=== PATIENT | female | born 1965 | race African-American/Black ===

== ENCOUNTER 2017-03-26 10:13 | Emergency (ER) | payer SELFPAY ==
[2017-03-26] MEDS ORDERED: Acetaminophen 500 MG TAB ONE (10:59)
[2017-03-26 11:01] LABS: #Basophils 0.2 thou/uL (0.0-0.2); #Eosinphils 0.1 thou/uL (0.0-0.7); #Lymphocytes 2.5 thou/uL (1.20-3.40); #Monocytes 0.9 thou/uL (0.11-0.59); #Neutrophils 7.1 thou/uL (1.40-6.50); %Basophils 1.4 % (0.0-1.0); %Lymphocytes 23.4 % (21.0-51.0); %Monocytes 8.1 % (0.0-10.0); %Neutrophils 66.2 % (42.0-75.0); Hemoglobin 14.4 g/dL (12.0-16.0); Mean Corpuscular HGB CONC 32.3 g/dL (32.0-36.0); Mean Corpuscular Hemoglobin 29.2 pg (27.0-31.0); Mean Corpuscular Volume 90.4 fl (81.0-99.0); Mean Platelet Volume 8.8 fL (7.4-10.4); Platelet Count 241 thou/uL (130-400); RBC Distribution Width 12.1 % (11.5-14.5); Red Blood Cell (RBC) Count 4.95 mill/uL (4.20-5.40); White Blood Cell (WBC) Count 10.7 thou/uL (4.8-10.8)
[2017-03-26 11:14] LABS: ALT (SGPT) 13 U/L (8-55); AST (SGOT) 9 U/L (5-34); Albumin 3.6 g/dL (3.5-5.0); Alkaline Phosphatase 83 U/L (40-150); Anion Gap 11 mmol/L (10-20); BUN (Urea Nitrogen) 11 mg/dL (9.8-20.1); Bilirubin, Total 0.4 mg/dL (0.2-1.2); Calc. Creatinine Clearance 0 mL/min (70-130); Carbon Dioxide 24 mmol/L (22-29); Chloride 107 mmol/L (98-107); Estimated GFR-MDRD Greater than 90; Globulin 3.5 g/dL (2.4-3.5); Glucose 203 mg/dL (70-105); Potassium 4.1 mmol/L (3.5-5.1); Protein, Total 7.1 g/dL (6.0-8.3); Sodium 138 mmol/L (136-145)
--- NOTE | 2017-03-26 11:45 | RAD ---
LEFT HIP TWO VIEWS: Date: 03-26-17 FINDINGS: No fracture was appreciated. The joint space is normal in width. The adjacent pubic ring appears int act. A little periosteal prominence in the upper femur is typical and not necessarily abnormal. IMPRESSION: No acute bony findings. POS: HOME
--- NOTE | 2017-03-26 11:46 | RAD ---
LUMBAR SPINE THREE VIEWS: Date: 03-26-17 FINDINGS: No acute fracture was seen. Very minor wedging of T11 does not appear acute. There is mild anterolis thesis of L4 on L5 that appears to be due to facet arthritis. No parts defects were appreciated. The disc spaces are normal in height. The SI joints are symmetrical. Overall, degenerative changes are present but very minor. IMPRESSION: No acute finding. POS: HOME
[2017-03-26] MEDS ORDERED: Ketorolac Tromethamine 30 MG/ML VIAL ONE (12:00)
[2017-03-26] MEDS ORDERED: HYDROcodone/Acetaminophen 10/325 mg Tablet ONE (12:33)
== END 2017-03-26 12:20 | disposition home or self-care (01) ==
LOC: BURERS 10:13
DX: M54.5 Low back pain (principal); E11.9 Type 2 diabetes mellitus without complications; E78.5 Hyperlipidemia, unspecified; I10 Essential (primary) hypertension; F17.210 Nicotine dependence, cigarettes, uncomplicated; W01.0XXA Fall on same level from slipping, tripping and stumbling without subsequent striking against object, initial encounter
CPT/HCPCS: 36415; 72100; 80053; 85025; 96361; 96374; J1885

== ENCOUNTER 2017-05-22 11:55 | Emergency (ER) | payer SELFPAY ==
[2017-05-22] MEDS ORDERED: Albuterol Sulfate 1.25 MG/3 ML NEB ONE (12:30)
[2017-05-22] MEDS ORDERED: Sodium Chloride 0.9% 100 ML ONE (12:30)
[2017-05-22] MEDS ORDERED: cefTRIAXone\\ROCEPHIN 2 GM VIAL ONE (12:30)
[2017-05-22 12:48] LABS: #Basophils 0.1 thou/uL (0.0-0.2); #Lymphocytes 1.7 thou/uL (1.20-3.40); #Monocytes 0.7 thou/uL (0.11-0.59); #Neutrophils 3.3 thou/uL (1.40-6.50); %Basophils 2.6 % (0.0-1.0); %Lymphocytes 29.5 % (21.0-51.0); %Monocytes 11.6 % (0.0-10.0); %Neutrophils 56.3 % (42.0-75.0); Mean Corpuscular HGB CONC 32.4 g/dL (32.0-36.0); Mean Corpuscular Hemoglobin 28.7 pg (27.0-31.0); Mean Corpuscular Volume 88.6 fl (81.0-99.0); Mean Platelet Volume 7.9 fL (7.4-10.4); Platelet Count 248 thou/uL (130-400); RBC Distribution Width 11.9 % (11.5-14.5); Red Blood Cell (RBC) Count 5.23 mill/uL (4.20-5.40); White Blood Cell (WBC) Count 5.8 thou/uL (4.8-10.8)
[2017-05-22] MEDS ORDERED: Acetaminophen 500 MG TAB ONE (13:01)
[2017-05-22 13:05] LABS: ALT (SGPT) 31 U/L (8-55); AST (SGOT) 46 U/L (5-34); Albumin 3.7 g/dL (3.5-5.0); Alkaline Phosphatase 84 U/L (40-150); Anion Gap 16 mmol/L (10-20); BUN (Urea Nitrogen) 12 mg/dL (9.8-20.1); Bilirubin, Total 0.2 mg/dL (0.2-1.2); Calc. Creatinine Clearance 0 mL/min (70-130); Carbon Dioxide 23 mmol/L (22-29); Chloride 100 mmol/L (98-107); Estimated GFR-MDRD 74; Globulin 4.7 g/dL (2.4-3.5); Glucose 224 mg/dL (70-105); Potassium 3.7 mmol/L (3.5-5.1); Protein, Total 8.4 g/dL (6.0-8.3); Sodium 135 mmol/L (136-145)
[2017-05-22 13:06] LABS: CKMB 0.7 ng/mL (0-6.6); Troponin I Less than 0.010 ng/mL (< 0.028)
[2017-05-22] MEDS ORDERED: Oseltamivir 75 MG CAP ONE (13:25)
[2017-05-22] MEDS ORDERED: Benzonatate 100 MG CAP ONE (13:48)
--- NOTE | 2017-05-22 14:40 | RAD ---
2 VIEWS OF CHEST: Date: 05/22/17 COMPARISON: 07/05/13. HISTORY: Cough. FINDINGS: Lungs are clear. Heart and mediastinal contours are stable. No acute osseous abnormality. Stable thor acic spine degenerative change. IMPRESSION: No acute findings. POS: [facility]
== END 2017-05-22 14:04 | disposition short-term general hospital (02) ==
LOC: BURERS 11:55
DX: J44.0 Chronic obstructive pulmonary disease with (acute) lower respiratory infection (principal); J11.1 Influenza due to unidentified influenza virus with other respiratory manifestations; R09.02 Hypoxemia; E11.9 Type 2 diabetes mellitus without complications; E78.5 Hyperlipidemia, unspecified; I10 Essential (primary) hypertension; F17.210 Nicotine dependence, cigarettes, uncomplicated; Z79.84 Long term (current) use of oral hypoglycemic drugs; Z79.899 Other long term (current) drug therapy
CPT/HCPCS: 36415; 71020; 80053; 82553; 83605; 83880; 84484; 85025; 87040; 94640; 94760; 96361; 96365; J0696; J7050; J7620

== ENCOUNTER 2018-08-19 03:33 | Emergency (ER) | payer SELFPAY ==
[2018-08-19] MEDS ORDERED: Aspirin Chewable 81 MG TAB ONE (03:59)
[2018-08-19 04:21] LABS: #Basophils 0.2 thou/uL (0.0-0.2); #Eosinphils 0.1 thou/uL (0.0-0.7); #Lymphocytes 3.5 thou/uL (1.20-3.40); #Monocytes 0.7 thou/uL (0.11-0.59); #Neutrophils 4.1 thou/uL (1.40-6.50); %Basophils 2.3 % (0.0-1.0); %Eosinophils 1.7 % (0.0-10.0); %Lymphocytes 40.6 % (21.0-51.0); %Monocytes 8.1 % (0.0-10.0); %Neutrophils 47.4 % (42.0-75.0); Hemoglobin 14.3 g/dL (12.0-16.0); Mean Corpuscular Hemoglobin 29.2 pg (27.0-31.0); Mean Corpuscular Volume 88.6 fL (78.0-98.0); Mean Platelet Volume 8.6 fL (7.4-10.4); Platelet Count 268 thou/uL (130-400); RBC Distribution Width 12.8 % (11.5-14.5); Red Blood Cell (RBC) Count 4.88 mill/uL (4.20-5.40); White Blood Cell (WBC) Count 8.6 thou/uL (4.8-10.8)
[2018-08-19 04:31] LABS: ALT (SGPT) 13 U/L (8-55); AST (SGOT) 9 U/L (5-34); Albumin 3.8 g/dL (3.5-5.0); Alkaline Phosphatase 90 U/L (40-150); Anion Gap 13 mmol/L (10-20); BUN (Urea Nitrogen) 16 mg/dL (9.8-20.1); Bilirubin, Total 0.2 mg/dL (0.2-1.2); Calc. Creatinine Clearance 0 mL/min (70-130); Calcium 9.4 mg/dL (7.8-10.44); Carbon Dioxide 25 mmol/L (22-29); Chloride 105 mmol/L (98-107); Estimated GFR-MDRD 81; Globulin 3.6 g/dL (2.4-3.5); Glucose 156 mg/dL (70-105); Protein, Total 7.4 g/dL (6.0-8.3); Sodium 139 mmol/L (136-145)
[2018-08-19] MEDS ORDERED: Ketorolac Tromethamine 30 MG/ML VIAL ONE (04:41)
--- NOTE | 2018-08-19 07:52 | RAD ---
PORTABLE CHEST: DATE: 08/19/2018. FINDINGS: An AP portable film at 1533 is compared with an 05/22/2017 study. The heart is normal in size. There is no vascular congestion or edema. The lungs are clear. The sl ight haziness in the left base appears to be due to the overlying soft tissues. The mediastinum appe ars normal and the trachea is midline. IMPRESSION: No acute thoracic findings. POS: HOME
== END 2018-08-19 06:45 | disposition home or self-care (01) ==
LOC: BURERS 03:33
DX: R07.89 Other chest pain (principal); E11.9 Type 2 diabetes mellitus without complications; E78.5 Hyperlipidemia, unspecified; I10 Essential (primary) hypertension; Z87.891 Personal history of nicotine dependence; Z79.4 Long term (current) use of insulin; Z79.899 Other long term (current) drug therapy
CPT/HCPCS: 36416; 71045; 80053; 84484; 85025; 93005; 96374; 36415-59; J1885

== ENCOUNTER 2019-01-19 19:20 | Emergency (ER) | payer SELFPAY ==
[2019-01-19] MEDS ORDERED: Aspirin Chewable 81 MG TAB ONE (19:45)
[2019-01-19 19:48] LABS: #Basophils 0.2 thou/uL (0.0-0.2); #Eosinphils 0.1 thou/uL (0.0-0.7); #Lymphocytes 3.5 thou/uL (1.20-3.40); #Monocytes 0.7 thou/uL (0.11-0.59); #Neutrophils 4.1 thou/uL (1.40-6.50); %Basophils 2.8 % (0.0-1.0); %Eosinophils 1.4 % (0.0-10.0); %Lymphocytes 39.7 % (21.0-51.0); %Monocytes 8.5 % (0.0-10.0); %Neutrophils 47.6 % (42.0-75.0); Hemoglobin 14.1 g/dL (12.0-16.0); Mean Corpuscular HGB CONC 30.9 g/dL (32.0-36.0); Mean Corpuscular Hemoglobin 28.1 pg (27.0-31.0); Mean Platelet Volume 8.3 fL (7.4-10.4); Platelet Count 264 thou/uL (130-400); RBC Distribution Width 12.9 % (11.5-14.5); Red Blood Cell (RBC) Count 5.02 mill/uL (4.20-5.40); White Blood Cell (WBC) Count 8.7 thou/uL (4.8-10.8)
[2019-01-19 20:03] LABS: ALT (SGPT) 14 U/L (8-55); AST (SGOT) 10 U/L (5-34); Albumin 3.8 g/dL (3.5-5.0); Alkaline Phosphatase 87 U/L (40-150); Anion Gap 14 mmol/L (10-20); BUN (Urea Nitrogen) 11 mg/dL (9.8-20.1); Bilirubin, Total Less than 0.2 mg/dL (0.2-1.2); Calc. Creatinine Clearance 0 mL/min (70-130); Calcium 9.6 mg/dL (7.8-10.44); Carbon Dioxide 28 mmol/L (22-29); Chloride 101 mmol/L (98-107); Estimated GFR-MDRD 82; Globulin 4.1 g/dL (2.4-3.5); Glucose 139 mg/dL (70-105); Lipase 27 U/L (8-78); Potassium 4.1 mmol/L (3.5-5.1); Protein, Total 7.9 g/dL (6.0-8.3); Sodium 139 mmol/L (136-145)
[2019-01-19] MEDS ORDERED: Metoprolol Tartrate 5 MG/5 ML VIAL ONE ×2 (20:18→20:20)
[2019-01-19] MEDS ORDERED: Ondansetron PF 4 MG/2 ML Vial ONE (20:18)
[2019-01-19] MEDS ORDERED: Enoxaparin Sodium 30 MG/0.3 ML SYRINGE ONE (20:18)
[2019-01-19] MEDS ORDERED: Enoxaparin Sodium 100 MG/ML SYRINGE ONE (20:18)
[2019-01-19 20:20] LABS: CKMB 2.4 ng/mL (0-6.6)
--- NOTE | 2019-01-19 20:22 | RAD ---
PORTABLE CHEST: 01/19/19 HISTORY: Chest pain. Lungs appear clear. No infiltrate identified. The heart and mediastinum unremarkable. IMPRESSION: No acute infiltrate identified. POS: [facility]
== END 2019-01-19 20:35 | disposition short-term general hospital (02) ==
LOC: BURERS 19:20
DX: I21.4 Non-ST elevation (NSTEMI) myocardial infarction (principal); E11.9 Type 2 diabetes mellitus without complications; I10 Essential (primary) hypertension; E78.5 Hyperlipidemia, unspecified; F17.210 Nicotine dependence, cigarettes, uncomplicated; Z79.84 Long term (current) use of oral hypoglycemic drugs; Z79.51 Long term (current) use of inhaled steroids; Z79.899 Other long term (current) drug therapy
CPT/HCPCS: 71045; 80053; 82553; 83690; 84484; 85025; 93005; 96372; 96374; 96375; J1650; J2405

== ENCOUNTER 2019-04-14 22:01 | Emergency (ER) | payer SELFPAY ==
[2019-04-14] MEDS ORDERED: methylPREDNISolone Sod Succ/PF 125 MG/2 ML VIAL ONE (22:15)
[2019-04-14] MEDS ORDERED: diphenhydrAMINE 50 MG/ML VIAL ONE (22:15)
[2019-04-14] MEDS ORDERED: Famotidine In NaCl 20 mg/50 ml Premix Bag ONE (22:15)
[2019-04-14 22:22] LABS: #Basophils 0.2 thou/uL (0.0-0.2); #Eosinphils 0.3 thou/uL (0.0-0.7); #Monocytes 0.8 thou/uL (0.11-0.59); #Neutrophils 4.5 thou/uL (1.40-6.50); %Basophils 2.4 % (0.0-1.0); %Eosinophils 3.2 % (0.0-10.0); %Lymphocytes 34.1 % (21.0-51.0); %Monocytes 8.9 % (0.0-10.0); %Neutrophils 51.5 % (42.0-75.0); Hemoglobin 13.6 g/dL (12.0-16.0); Mean Corpuscular HGB CONC 32.7 g/dL (32.0-36.0); Mean Corpuscular Volume 88.5 fL (78.0-98.0); Mean Platelet Volume 8.9 fL (7.4-10.4); Platelet Count 250 thou/uL (130-400); RBC Distribution Width 13.3 % (11.5-14.5); Red Blood Cell (RBC) Count 4.71 mill/uL (4.20-5.40); White Blood Cell (WBC) Count 8.8 thou/uL (4.8-10.8)
[2019-04-14 22:37] LABS: ALT (SGPT) 14 U/L (8-55); AST (SGOT) 8 U/L (5-34); Albumin 4.1 g/dL (3.5-5.0); Alkaline Phosphatase 138 U/L (40-110); Anion Gap 16 mmol/L (10-20); BUN (Urea Nitrogen) 13 mg/dL (9.8-20.1); Bilirubin, Total 0.2 mg/dL (0.2-1.2); Calc. Creatinine Clearance 0 mL/min (70-130); Calcium 9.8 mg/dL (7.8-10.44); Carbon Dioxide 25 mmol/L (22-29); Chloride 102 mmol/L (98-107); Estimated GFR-MDRD 79; Globulin 4.1 g/dL (2.4-3.5); Glucose 305 mg/dL (70-105); Protein, Total 8.2 g/dL (6.0-8.3); Sodium 139 mmol/L (136-145)
== END 2019-04-15 02:00 | disposition home or self-care (01) ==
LOC: BURERS 22:01
DX: T78.3XXA Angioneurotic edema, initial encounter (principal); E11.9 Type 2 diabetes mellitus without complications; E78.5 Hyperlipidemia, unspecified; E78.00 Pure hypercholesterolemia, unspecified; I10 Essential (primary) hypertension; F17.210 Nicotine dependence, cigarettes, uncomplicated; Z79.899 Other long term (current) drug therapy; Z79.84 Long term (current) use of oral hypoglycemic drugs; Z79.51 Long term (current) use of inhaled steroids
CPT/HCPCS: 80053; 83605; 85025; 96374; 96375; J1200; J2930

== ENCOUNTER 2019-05-20 09:05 | Emergency (ER) | payer SELFPAY | END 2019-05-20 09:50 | disposition home or self-care (01) | LOC: BURERS 09:05 | DX: J02.9 Acute pharyngitis, unspecified (principal); I10 Essential (primary) hypertension; E11.9 Type 2 diabetes mellitus without complications; E78.5 Hyperlipidemia, unspecified; F17.210 Nicotine dependence, cigarettes, uncomplicated | CPT/HCPCS: 99283 ==

== ENCOUNTER 2020-01-06 17:36 | Emergency (ER) | payer SELFPAY ==
[2020-01-06 18:51] LABS: Eosinophils 2 % (0-10); Hemoglobin 14.1 g/dL (12.0-16.0); Lymphocytes 33 % (21-51); MDiff Complete? YES; Mean Corpuscular HGB CONC 30.2 g/dL (32.0-36.0); Mean Corpuscular Hemoglobin 28.3 pg (27.0-31.0); Mean Corpuscular Volume 93.9 fL (78.0-98.0); Mean Platelet Volume 9.4 fL (7.4-10.4); Monocytes 7 % (0-10); Neutrophil 58 % (42-75); Platelet Count 268 thou/uL (130-400); RBC Distribution Width 13.2 % (11.5-14.5); Red Blood Cell (RBC) Count 4.96 mill/uL (4.20-5.40); White Blood Cell (WBC) Count 9.5 thou/uL (4.8-10.8)
[2020-01-06 18:59] LABS: Anion Gap 15 mmol/L (10-20); BUN (Urea Nitrogen) 12 mg/dL (9.8-20.1); Bilirubin, Total Less than 0.2 mg/dL (0.2-1.2); Calc. Creatinine Clearance 0 mL/min (70-130); Calcium 9.2 mg/dL (7.8-10.44); Carbon Dioxide 26 mmol/L (22-29); Chloride 100 mmol/L (98-107); Estimated GFR-MDRD 76; Glucose 236 mg/dL (70-105); Potassium 3.8 mmol/L (3.5-5.1); Sodium 137 mmol/L (136-145)
[2020-01-06 19:00] LABS: ALT (SGPT) 9 U/L (8-55); AST (SGOT) 8 U/L (5-34); Albumin 3.8 g/dL (3.5-5.0); Alkaline Phosphatase 98 U/L (40-110); Globulin 3.7 g/dL (2.4-3.5); Lipase 24 U/L (8-78); Protein, Total 7.5 g/dL (6.0-8.3)
[2020-01-06] MEDS ORDERED: Ketorolac Tromethamine 30 MG/ML VIAL ONE (19:06)
--- NOTE | 2020-01-06 21:03 | RAD ---
PORTABLE CHEST: 01/06/20 An AP portable film at 1820 is compared with a 01/19/19 study. The heart is normal in size and the lungs are clear. No infiltrate or effusion was seen. The mediasti num shows no widening or shift. The trachea is midline. IMPRESSION: No acute findings. POS: HOME
== END 2020-01-06 19:26 | disposition home or self-care (01) ==
LOC: BURERS 17:36
DX: M54.6 Pain in thoracic spine (principal); E11.9 Type 2 diabetes mellitus without complications; E78.5 Hyperlipidemia, unspecified; E78.00 Pure hypercholesterolemia, unspecified; I10 Essential (primary) hypertension; F17.210 Nicotine dependence, cigarettes, uncomplicated; I25.2 Old myocardial infarction; Z79.84 Long term (current) use of oral hypoglycemic drugs; Z79.899 Other long term (current) drug therapy
CPT/HCPCS: 36415; 71045; 80053; 83690; 84484; 85025; 93005; 96374; J1885

== ENCOUNTER 2020-02-16 17:39 | Emergency (ER) | payer MEDICARE, MEDICAID ==
[2020-02-16] MEDS ORDERED: Adacel (T-DAP) 0.5 ML SYRINGE ONE (18:12)
[2020-02-16] MEDS ORDERED: Lidocaine 2% w/Epinephrine 1:200K 20 ML VIAL ONE (18:49)
[2020-02-16] MEDS ORDERED: Cephalexin 250 MG CAP ONE (19:03)
--- NOTE | 2020-02-16 20:10 | RAD ---
LEFT HAND THREE VIEWS: 02/16/20 No fracture or opaque foreign body was seen. All bones are normal in appearance. IMPRESSION: No acute finding. POS: HOME
== END 2020-02-16 19:05 | disposition home or self-care (01) ==
LOC: BURERS 17:39
DX: S61.432A Puncture wound without foreign body of left hand, initial encounter (principal); Z23 Encounter for immunization; I25.2 Old myocardial infarction; E11.9 Type 2 diabetes mellitus without complications; E78.5 Hyperlipidemia, unspecified; I10 Essential (primary) hypertension; F17.210 Nicotine dependence, cigarettes, uncomplicated; Z79.899 Other long term (current) drug therapy; Z79.84 Long term (current) use of oral hypoglycemic drugs; W26.8XXA Contact with other sharp object(s), not elsewhere classified, initial encounter
CPT/HCPCS: 90471; 90715

== ENCOUNTER 2020-08-27 19:17 | Emergency (ER) | payer MEDICARE, MEDICAID ==
[2020-08-27] MEDS ORDERED: Ketorolac Tromethamine 30 MG/ML VIAL ONE (19:58)
--- NOTE | 2020-08-27 23:59 | RAD ---
RIGHT HIP 2 VIEWS: Date: 08/27/2020 No fracture seen. The joint space appears normal. The articular surfaces are hard to see well, but th ey appear smooth. There is no gross arthritic change. IMPRESSION: No acute findings. POS: HOME
== END 2020-08-27 20:05 | disposition home or self-care (01) ==
LOC: BURERS 19:17
DX: M54.5 Low back pain (principal); M25.551 Pain in right hip; I25.2 Old myocardial infarction; E11.9 Type 2 diabetes mellitus without complications; E78.5 Hyperlipidemia, unspecified; E78.00 Pure hypercholesterolemia, unspecified; I10 Essential (primary) hypertension; F17.210 Nicotine dependence, cigarettes, uncomplicated; Z79.4 Long term (current) use of insulin; Z79.899 Other long term (current) drug therapy
CPT/HCPCS: 96372; J1885

== ENCOUNTER 2020-09-01 21:37 | Emergency (ER) | payer MEDICARE, MEDICAID ==
[2020-09-01] MEDS ORDERED: Tetracaine 0.5% PF 4 ML BOT ONE (22:05)
[2020-09-01] MEDS ORDERED: Fluorescein Opthalmic Strip ONE (22:05)
[2020-09-01] MEDS ORDERED: Bacitracin 1 PK ONE (22:47)
[2020-09-01] MEDS ORDERED: Neomycin-Polymyxin-Hc 7.5 ML BOT ONE (22:47)
== END 2020-09-01 22:50 | disposition home or self-care (01) ==
LOC: BURERS 21:37
DX: T15.12XA Foreign body in conjunctival sac, left eye, initial encounter (principal); T15.11XA Foreign body in conjunctival sac, right eye, initial encounter; S00.83XA Contusion of other part of head, initial encounter; S20.312A Abrasion of left front wall of thorax, initial encounter; S20.352A Superficial foreign body of left front wall of thorax, initial encounter; W22.8XXA Striking against or struck by other objects, initial encounter; Z79.899 Other long term (current) drug therapy; Z79.82 Long term (current) use of aspirin; Z79.4 Long term (current) use of insulin; I25.2 Old myocardial infarction; E11.9 Type 2 diabetes mellitus without complications; E78.5 Hyperlipidemia, unspecified; E78.00 Pure hypercholesterolemia, unspecified; I10 Essential (primary) hypertension; F17.210 Nicotine dependence, cigarettes, uncomplicated
CPT/HCPCS: 65210; 70450

== ENCOUNTER 2020-10-21 03:54 | Emergency (ER) | payer MEDICARE, MEDICAID ==
[2020-10-21] MEDS ORDERED: Ketorolac Tromethamine 60 MG/2 ML VIAL ONE (04:24)
== END 2020-10-21 04:36 | disposition home or self-care (01) ==
LOC: BURERS 03:54
DX: R07.9 Chest pain, unspecified (principal); E11.9 Type 2 diabetes mellitus without complications; E78.5 Hyperlipidemia, unspecified; E78.00 Pure hypercholesterolemia, unspecified; I25.2 Old myocardial infarction; I10 Essential (primary) hypertension; F17.210 Nicotine dependence, cigarettes, uncomplicated; Z79.899 Other long term (current) drug therapy; Z79.4 Long term (current) use of insulin
CPT/HCPCS: 96372; J1885

== ENCOUNTER 2021-12-21 20:49 | Emergency (ER) | payer MEDICAID, MEDICARE ==
[2021-12-21] MEDS ORDERED: HYDROcodone/Acetaminophen 5/325 mg Tablet ONE (21:36)
== END 2021-12-21 22:15 | disposition home or self-care (01) ==
LOC: BURERS 20:49
DX: R51.9 Headache, unspecified (principal); E11.9 Type 2 diabetes mellitus without complications; E78.5 Hyperlipidemia, unspecified; I10 Essential (primary) hypertension; E78.00 Pure hypercholesterolemia, unspecified
CPT/HCPCS: 70450

== ENCOUNTER 2022-03-07 07:32 | Emergency (ER) | payer OTHER, MEDICAID ==
[2022-03-07] MEDS ORDERED: Iopamidol 370 76% 100 ML VIAL FS ONE (07:33)
[2022-03-07 08:11] LABS: #Basophils 0.3 thou/uL (0.0-0.2); #Eosinphils 0.1 thou/uL (0.0-0.7); #Lymphocytes 3.3 thou/uL (1.20-3.40); #Monocytes 0.8 thou/uL (0.11-0.59); #Neutrophils 6.5 thou/uL (1.40-6.50); %Basophils 2.4 % (0.0-1.0); %Eosinophils 0.9 % (0.0-10.0); %Lymphocytes 30.3 % (21.0-51.0); %Monocytes 7.7 % (0.0-10.0); %Neutrophils 58.8 % (42.0-75.0); Hemoglobin 14.5 g/dL (12.0-16.0); Mean Corpuscular HGB CONC 34.5 g/dL (32.0-36.0); Mean Corpuscular Volume 86.9 fL (78.0-98.0); Mean Platelet Volume 8.1 fL (7.4-10.4); Platelet Count 325 thou/uL (130-400); RBC Distribution Width 13.1 % (11.5-14.5); Red Blood Cell (RBC) Count 4.84 mill/uL (4.20-5.40)
[2022-03-07 08:20] LABS: INR-International Normal Ratio 0.9; PTT 30.2 sec (22.9-36.1); Prothrombin Time 12.5 sec (12.0-14.7)
[2022-03-07 08:22] LABS: ALT (SGPT) 13 U/L (8-55); AST (SGOT) 12 U/L (5-34); Albumin 3.6 g/dL (3.5-5.0); Alkaline Phosphatase 86 U/L (40-110); Anion Gap 15 mmol/L (10-20); BUN (Urea Nitrogen) 14 mg/dL (9.8-20.1); Bilirubin, Total 0.3 mg/dL (0.2-1.2); Calc. Creatinine Clearance 0 mL/min (70-130); Calcium 9.4 mg/dL (7.8-10.44); Carbon Dioxide 25 mmol/L (22-29); Chloride 107 mmol/L (98-107); Estimated GFR 55; Globulin 4.1 g/dL (2.4-3.5); Glucose 96 mg/dL (70-105); Potassium 3.5 mmol/L (3.5-5.1); Protein, Total 7.7 g/dL (6.0-8.3); Sodium 143 mmol/L (136-145)
[2022-03-07] MEDS ORDERED: Aspirin 325 MG TAB ONE (08:51)
== END 2022-03-07 09:55 | disposition home or self-care (01) ==
LOC: BURERS 07:32
DX: I63.9 Cerebral infarction, unspecified (principal); E11.9 Type 2 diabetes mellitus without complications; E78.5 Hyperlipidemia, unspecified; I10 Essential (primary) hypertension; F17.210 Nicotine dependence, cigarettes, uncomplicated
CPT/HCPCS: 36415; 70450; 70496; 70498; 80053; 85025; 85610; 85730; Q9967

== ENCOUNTER 2023-06-30 20:49 | Emergency (ER) | payer MEDICAID, OTHER ==
[2023-06-30 22:47] LABS: Hematocrit 40.6 % (36.0-47.0); Hemoglobin 13.4 g/dL (12.0-16.0); Mean Corpuscular Hemoglobin 28.7 pg (27.0-31.0); Mean Corpuscular Volume 87.2 fl (78.0-98.0); Mean Platelet Volume 8.1 fL (7.4-10.4); Platelet Count 385 10x3/uL (130-400); RBC Distribution Width 12.4 % (11.5-14.5); Red Blood Cell (RBC) Count 4.65 mill/uL (4.20-5.40); White Blood Cell (WBC) Count 10.7 10x3/uL (4.8-10.8)
[2023-06-30 22:59] LABS: Eosinophils 2 % (0-10); Lymphocytes 19 % (21-51); MDiff Complete? YES; Monocytes 7 % (0-10); Neutrophil 72 % (42-75); Platelet Adequacy Comment Appears Adequate
[2023-06-30 23:01] LABS: ALT (SGPT) 14 U/L (8-55); AST (SGOT) 11 U/L (5-34); Albumin 3.9 g/dL (3.5-5.0); Alkaline Phosphatase 108 U/L (40-110); Anion Gap 14 mmol/L (10-20); BUN (Urea Nitrogen) 16 mg/dL (9.8-20.1); Bilirubin, Total 0.2 mg/dL (0.2-1.2); CK (CPK) 179 U/L (29-168); Calc. Creatinine Clearance 0 mL/min (70-130); Calcium 9.3 mg/dL (7.8-10.44); Carbon Dioxide 26 mmol/L (22-29); Chloride 105 mmol/L (98-107); Estimated GFR 32; Globulin 4.5 g/dL (2.4-3.5); Glucose 186 mg/dL (70-105); Potassium 3.3 mmol/L (3.5-5.1); Protein, Total 8.4 g/dL (6.0-8.3); Sodium 142 mmol/L (136-145)
[2023-06-30 23:26] LABS: Bilirubin Negative (Negative); Blood, Urine Moderate (Negative); Clarity Clear (Clear); Glucose, Urine (Dipstick) 500 mg/dL (Negative); Ketone, Urine Trace mg/dL (Negative); Leukocyte Negative (Negative); Nitrite Positive (Negative); Protein, Urine (Dipstick) > or equal to 300 mg/dL (Neg-Trace); Specific Gravity, Urine 1.025 (1.005-1.030); pH, Urine 6.5 (5.0-9.0)
[2023-06-30 23:43] LABS: Bacteria/HPF 2+ HPF (None Seen); CAUTI Indications for Culture Pelvic or flank pain; Renal Epithelial 0-3 HPF (None Seen); WBC/HPF 21-50 HPF (0-3)
[2023-06-30 23:45] LABS: Urine Culture Reflex Yes Yes
[2023-07-01] MEDS ORDERED: Nitrofurantoin Monohyd/M-Cryst 100 MG CAP ONE (00:02)
== END 2023-07-01 00:08 | disposition home or self-care (01) ==
LOC: BURERS 20:49
DX: M79.605 Pain in left leg (principal); N39.0 Urinary tract infection, site not specified; E11.9 Type 2 diabetes mellitus without complications; E78.5 Hyperlipidemia, unspecified; I10 Essential (primary) hypertension; F17.210 Nicotine dependence, cigarettes, uncomplicated; Z79.84 Long term (current) use of oral hypoglycemic drugs; Z79.899 Other long term (current) drug therapy; Z79.82 Long term (current) use of aspirin
CPT/HCPCS: 51701; 80053; 81001; 82550; 85025; 87077; 87086; 99283

== ENCOUNTER 2023-07-04 20:58 | Emergency (ER) | payer OTHER ==
[2023-07-04] MEDS ORDERED: traMADol HCl 50 MG TAB ONE (21:17)
[2023-07-04] MEDS ORDERED: Ketorolac Tromethamine 30 MG (1 mL) VIAL ONE (21:17)
== END 2023-07-04 21:31 | disposition home or self-care (01) ==
LOC: BURERS 20:58
DX: G89.29 Other chronic pain (principal); M25.562 Pain in left knee; F17.210 Nicotine dependence, cigarettes, uncomplicated; I10 Essential (primary) hypertension; E11.9 Type 2 diabetes mellitus without complications
CPT/HCPCS: 96372; 99283; J1885

== ENCOUNTER 2023-08-02 16:21 | Emergency (ER) | payer OTHER ==
[2023-08-02] MEDS ORDERED: Dextrose 50% Abboject 50 ML SYRINGE ONE ×2 (16:39→18:59)
[2023-08-02 16:48] LABS: #Basophils 0.4 thou/uL (0.0-0.2); #Eosinphils 0.1 thou/uL (0.0-0.7); #Lymphocytes 2.8 thou/uL (1.20-3.40); #Neutrophils 8.7 thou/uL (1.40-6.50); %Basophils 2.9 % (0.0-1.0); %Eosinophils 0.6 % (0.0-10.0); %Lymphocytes 21.6 % (21.0-51.0); Hematocrit 38.8 % (36.0-47.0); Hemoglobin 12.8 g/dL (12.0-16.0); Mean Corpuscular Volume 84.9 fl (78.0-98.0); Mean Platelet Volume 7.5 fL (7.4-10.4); Platelet Count 428 10x3/uL (130-400); RBC Distribution Width 12.8 % (11.5-14.5); Red Blood Cell (RBC) Count 4.57 mill/uL (4.20-5.40)
[2023-08-02 17:03] LABS: ALT (SGPT) 11 U/L (8-55); AST (SGOT) 11 U/L (5-34); Albumin 3.8 g/dL (3.5-5.0); Alkaline Phosphatase 76 U/L (40-110); Anion Gap 17 mmol/L (10-20); BUN (Urea Nitrogen) 12 mg/dL (9.8-20.1); Bilirubin, Total 0.2 mg/dL (0.2-1.2); Calc. Creatinine Clearance 0 mL/min (70-130); Calcium 9.5 mg/dL (7.8-10.44); Carbon Dioxide 20 mmol/L (22-29); Chloride 108 mmol/L (98-107); Estimated GFR 32; Globulin 4.5 g/dL (2.4-3.5); Protein, Total 8.3 g/dL (6.0-8.3); Sodium 142 mmol/L (136-145)
[2023-08-02 17:06] LABS: Critical Call Chemistry NUR.BS9 @ 1705; Glucose 23 mg/dL (70-105)
[2023-08-02 18:04] LABS: Bilirubin Negative (Negative); Blood, Urine Moderate (Negative); Clarity Slightly Cloudy (Clear); Glucose, Urine (Dipstick) 100 mg/dL (Negative); Ketone, Urine Trace mg/dL (Negative); Leukocyte Negative (Negative); Nitrite Positive (Negative); Protein, Urine (Dipstick) > or equal to 300 mg/dL (Neg-Trace); Specific Gravity, Urine 1.025 (1.005-1.030)
[2023-08-02 18:11] LABS: CAUTI Indications for Culture Dysuria,urgency,freq
[2023-08-02 18:12] LABS: Bacteria/HPF 1+ HPF (None Seen); Urine Culture Reflex No No
[2023-08-02] MEDS ORDERED: Potassium Chloride 20 MEQ TAB ONE (18:12)
[2023-08-02] MEDS ORDERED: cefTRIAXone (ROCEPHIN) 1 GM VIAL ONE (18:13)
[2023-08-02] MEDS ORDERED: Sodium Chloride 0.9% 100 ML ONE (18:13)
== END 2023-08-02 19:21 | disposition short-term general hospital (02) ==
LOC: BURERS 16:21
DX: E11.649 Type 2 diabetes mellitus with hypoglycemia without coma (principal); E87.6 Hypokalemia; N39.0 Urinary tract infection, site not specified; I10 Essential (primary) hypertension
CPT/HCPCS: 36416; 71045; 80053; 81001; 85025; 93005; 96365; 96375; 96376; J0696; J3490; J7999

== ENCOUNTER 2024-02-23 23:22 | Emergency (ER) | payer OTHER, SELFPAY ==
[2024-02-23] MEDS ORDERED: Aspirin Chewable 81 MG TAB ONE (23:30)
[2024-02-23 23:43] LABS: #Basophils 0.2 thou/uL (0.0-0.2); #Eosinphils 0.1 thou/uL (0.0-0.7); #Lymphocytes 2.8 thou/uL (1.20-3.40); #Monocytes 0.8 thou/uL (0.11-0.59); #Neutrophils 5.2 thou/uL (1.40-6.50); %Basophils 2.3 % (0.0-1.0); %Eosinophils 1.4 % (0.0-10.0); %Lymphocytes 30.5 % (21.0-51.0); %Monocytes 8.6 % (0.0-10.0); %Neutrophils 57.1 % (42.0-75.0); Hematocrit 40.4 % (36.0-47.0); Hemoglobin 13.1 g/dL (12.0-16.0); Mean Corpuscular HGB CONC 32.4 g/dL (32.0-36.0); Mean Corpuscular Hemoglobin 27.4 pg (27.0-31.0); Mean Corpuscular Volume 84.5 fl (78.0-98.0); Mean Platelet Volume 7.9 fL (7.4-10.4); Platelet Count 288 10x3/uL (130-400); RBC Distribution Width 14.3 % (11.5-14.5); Red Blood Cell (RBC) Count 4.78 mill/uL (4.20-5.40)
[2024-02-24 00:02] LABS: Troponin I Less than 0.010 ng/mL (< 0.028)
[2024-02-24 00:03] LABS: ALT (SGPT) 43 U/L (8-55); AST (SGOT) 19 U/L (5-34); Albumin 3.5 g/dL (3.5-5.0); Alkaline Phosphatase 135 U/L (40-110); Anion Gap 14 mmol/L (10-20); BUN (Urea Nitrogen) 29 mg/dL (9.8-20.1); Bilirubin, Total 0.2 mg/dL (0.2-1.2); Calc. Creatinine Clearance 0 mL/min (70-130); Calcium 9.8 mg/dL (7.8-10.44); Carbon Dioxide 23 mmol/L (22-29); Chloride 108 mmol/L (98-107); Estimated GFR 27; Globulin 4.7 g/dL (2.4-3.5); Glucose 150 mg/dL (70-105); Potassium 4.4 mmol/L (3.5-5.1); Protein, Total 8.2 g/dL (6.0-8.3); Sodium 141 mmol/L (136-145)
[2024-02-24] MEDS ORDERED: Acetaminophen 500 MG TAB ONE (00:10)
== END 2024-02-24 00:31 | disposition home or self-care (01) ==
LOC: BURERS 23:22
DX: R07.89 Other chest pain (principal); I12.9 Hypertensive chronic kidney disease with stage 1 through stage 4 chronic kidney disease, or unspecified chronic kidney disease; E11.22 Type 2 diabetes mellitus with diabetic chronic kidney disease; N18.9 Chronic kidney disease, unspecified; E78.5 Hyperlipidemia, unspecified; I25.2 Old myocardial infarction
CPT/HCPCS: 71046; 80053; 83880; 84484; 85025; 93005

== ENCOUNTER 2024-03-29 00:23 | Emergency (ER) | payer SELFPAY | END 2024-03-29 00:45 | disposition left against medical advice (07) | LOC: BURERS 00:23 | DX: Z53.21 Procedure and treatment not carried out due to patient leaving prior to being seen by health care provider (principal) ==

== ENCOUNTER 2024-05-27 20:21 | Emergency (ER) | payer MEDICARE, OTHER ==
[2024-05-27 20:50] LABS: #Basophils 0.2 thou/uL (0.0-0.2); #Eosinophils 0.2 thou/uL (0.0-0.7); #Lymphocytes 2.4 thou/uL (1.20-3.40); #Monocytes 0.9 thou/uL (0.11-0.59); #Neutrophils 6.4 thou/uL (1.40-6.50); %Eosinophils 1.6 % (0.0-10.0); %Lymphocytes 23.7 % (21.0-51.0); %Monocytes 9.1 % (0.0-10.0); %Neutrophils 63.6 % (42.0-75.0); Hematocrit 39.9 % (36.0-47.0); Mean Corpuscular HGB CONC 32.5 g/dL (32.0-36.0); Mean Corpuscular Hemoglobin 29.1 pg (27.0-31.0); Mean Corpuscular Volume 89.5 fl (78.0-98.0); Mean Platelet Volume 8.2 fL (7.4-10.4); Platelet Count 294 10x3/uL (130-400); RBC Distribution Width 12.7 % (11.5-14.5); Red Blood Cell (RBC) Count 4.46 mill/uL (4.20-5.40); White Blood Cell (WBC) Count 10.1 10x3/uL (4.8-10.8)
[2024-05-27 20:59] LABS: INR-International Normal Ratio 0.9; PTT 27.1 sec (22.9-36.1); Prothrombin Time 12.1 sec (12.0-14.7)
[2024-05-27 21:07] LABS: ALT (SGPT) 35 U/L (8-55); AST (SGOT) 13 U/L (5-34); Albumin 3.2 g/dL (3.5-5.0); Alkaline Phosphatase 106 U/L (40-110); Anion Gap 14 mmol/L (10-20); BUN (Urea Nitrogen) 36 mg/dL (9.8-20.1); Bilirubin, Total 0.2 mg/dL (0.2-1.2); Calc. Creatinine Clearance 0 mL/min (70-130); Calcium 9.4 mg/dL (7.8-10.44); Carbon Dioxide 20 mmol/L (22-29); Chloride 111 mmol/L (98-107); Estimated GFR 28; Globulin 4.7 g/dL (2.4-3.5); Glucose 185 mg/dL (70-105); Potassium 4.2 mmol/L (3.5-5.1); Protein, Total 7.9 g/dL (6.0-8.3); Sodium 141 mmol/L (136-145)
[2024-05-27 21:13] LABS: Troponin I Less than 0.010 ng/mL (< 0.028)
[2024-05-27 21:24] LABS: Bilirubin Negative (Negative); Blood, Urine Trace (Negative); Glucose, Urine (Dipstick) 250 mg/dL (Negative); Ketone, Urine Negative (Negative); Leukocyte Negative (Negative); Nitrite Negative (Negative); Protein, Urine (Dipstick) > or equal to 300 mg/dL (Neg-Trace); Urobilinogen 0.2 mg/dL (Less than 2)
[2024-05-27 21:31] LABS: Clarity Slightly Cloudy (Clear)
[2024-05-27 21:32] LABS: Bacteria/HPF 1+ HPF (None Seen); CAUTI Indications for Culture Dysuria,urgency,freq; RBC/HPF 0-3 HPF (0-3); Urine Culture Reflex No No
[2024-05-27] MEDS ORDERED: Aspirin Chewable 81 MG TAB ONE (21:36)
[2024-05-27] MEDS ORDERED: Lantus 1000 UNITS/10 ML VIAL SC SCH (21:45)
== END 2024-05-28 00:05 | disposition short-term general hospital (02) ==
LOC: BURERS 20:21
DX: I63.9 Cerebral infarction, unspecified (principal); I10 Essential (primary) hypertension; E11.9 Type 2 diabetes mellitus without complications; Z79.84 Long term (current) use of oral hypoglycemic drugs; Z79.82 Long term (current) use of aspirin
CPT/HCPCS: 36416; 70450; 80053; 81001; 84484; 85025; 85610; 85730; 93005; J1815